=== PATIENT | female | born 1995 | race Caucasian/White ===

== ENCOUNTER 2023-03-31 19:12 | Inpatient (IN) | payer MEDICAID ==
[~2023-03-31] VITALS: Ht 149.9 cm; Wt 52.3 kg
[2023-03-31 20:26] LABS: APTT 27 SECONDS (22-32); PROTHROMBIN TIME 11.2 SECONDS (9.0-12.0)
[2023-03-31] MEDS ORDERED: temazepam 15mg capsule PO PRN (21:00)
[2023-03-31] MEDS ORDERED: HYDROcodone/acetaminophen 5mg/325mg tablet PO PRN (21:05)
[2023-03-31] MEDS ORDERED: ondansetron 4mg rapidly disintigrating tab PO PRN (21:05)
[2023-03-31] MEDS ORDERED: ondansetron/PF 4mg/2ml inj IV PRN (21:05)
[2023-03-31] MEDS ORDERED: diphenhydrAMINE 50 mg/ml inj IV PRN (21:05)
[2023-03-31] MEDS ORDERED: acetaminophen 325mg tablet PO PRN ×2 (21:05)
[2023-03-31] MEDS ORDERED: mag hydrox/Alum hydrox/simeth 30ml oral suspension PO PRN (21:05)
[2023-03-31] MEDS ORDERED: bisacodyl 10mg suppository rectal RC PRN (21:05)
[2023-03-31] MEDS ORDERED: morphine 2 MG/ML inj. syringe IV PRN (21:05)
[2023-03-31] MEDS ORDERED: diphenhydrAMINE 25mg capsule PO PRN (21:05)
[2023-03-31] MEDS ORDERED: magnesium hydroxide 30ml (MOM) UD suspension PO PRN (21:05)
[2023-03-31] MEDS ORDERED: ringers solution, lacted 1,000 ML IV ONE (21:10)
[2023-03-31 21:35] LABS: OSMOLALITY 283 MOSM/K (280-300)
[2023-03-31 21:36] LABS: ALANINE AMINOTRANSFERASE 16 U/L (12-78); ALBUMIN 3.7 G/DL (3.4-5.0); ALBUMIN/GLOBULIN RATIO 1.3 (1.1-1.5); ALKALINE PHOSPHATASE 50 IU/L (46-116); ANION GAP 7 (8-16); ASPARTATE AMINO TRANSFERASE 17 U/L (10-37); BASOPHILS # (AUTO) 0.1 X10'3 (0-0.2); BILIRUBIN,TOTAL 0.4 MG/DL (0.1-1.0); BLOOD UREA NITROGEN 6 MG/DL (7-18); BUN/CREATININE RATIO 10.9 (10.0-20.0); CALCIUM 8.8 MG/DL (8.5-10.1); CHLORIDE 105 MMOL/L (99-107); CREATININE 0.55 MG/DL (0.40-0.90); EOSINOPHILS # (AUTO) 0.1 X10'3 (0-0.9); EOSINOPHILS % (AUTO) 1.3 % (0-6); GLUCOSE 89 MG/DL (70-104); HEMATOCRIT 33.7 % (35.0-45.0); HEMOGLOBIN 11.3 g/dl (12.0-16.0); LYMPHOCYTES % (AUTO) 34.7 % (21-51); MEAN CORPUSCULAR HEMOGLOBIN 28.3 PG (27.0-31.0); MEAN CORPUSCULAR HGB CONC 33.6 g/dL (33.0-36.5); MEAN CORPUSCULAR VOLUME 84.3 FL (78-98); MEAN PLATELET VOLUME 9.6 FL (7.4-10.4); MONOCYTES # (AUTO) 0.4 X10'3 (0-0.9); MONOCYTES % (AUTO) 6.2 % (2-12); NEUTROPHILS # (AUTO) 3.2 X10'3 (1.8-7.7); NEUTROPHILS % (AUTO) 56.8 % (42-75); PLATELET COUNT 163 X10'3 (140-440); POTASSIUM 3.5 MMOL/L (3.5-5.1); RED CELL DISTRIBUTION WIDTH 14.2 % (11.5-14.5); SODIUM 139 MMOL/L (135-145); TOTAL CARBON DIOXIDE 26.6 MMOL/L (24-32); TOTAL PROTEIN 6.6 G/DL (6.4-8.2); WHITE BLOOD COUNT 5.7 X10'3 (4.5-11.0); eCRCL 107 ML/MIN; eGFR > 90 ML/MIN
[2023-03-31 21:40] LABS: D-DIMER < 0.19 MG/L FEU (0-0.50)
[2023-03-31 21:46] LABS: CREATINE KINASE 317 U/L (26-192); MAGNESIUM 2.1 MG/DL (1.5-2.4); PHOSPHORUS 4.2 MG/DL (2.3-4.5); PRO BRAIN NATRIURETIC PEPTIDE 265 PG/ML (0-125); THYROID STIMULATING HORMONE 0.67 ulU/ml (0.34-4.50)
[2023-03-31 21:49] LABS: HEMOGLOBIN A1C 4.9 % (4.5-6.2); LIPASE 20 U/L (16-77)
[2023-03-31 21:51] LABS: BILIRUBIN,URINE SMALL (Neg); CLARITY,URINE CLOUDY (Clear); GLUCOSE, URINE NEGATIVE (Neg); KETONES,URINE >=80 mg/dl (Neg); LEUKOCYTE ESTERASE ,URINE TRACE (Neg); NITRITES, URINE NEGATIVE (Neg); OCCULT BLOOD,URINE LARGE (Neg); PH,URINE 6.5 (4.8-8.0); PROTEIN,URINE 100 mg/dl (Neg)
[2023-03-31 21:56] LABS: UA COLLECTION TYPE CLN CATCH MIDSTREAM
[2023-03-31 21:57] LABS: COLOR,URINE PINK (Yellow)
[2023-03-31 22:00] LABS: BACTERIA,URINE 2+ /HPF (Neg); RBC,URINE TNTC /HPF (0-2); SQUAMOUS EPITHELIAL CELL,UR FEW /LPF (FEW)
[2023-03-31 22:18] LABS: URINE AMPHETAMINE SCREEN NEGATIVE (Neg); URINE BARBITUATE SCREEN NEGATIVE (Neg); URINE BENZODIAZEPINES SCREEN NEGATIVE (Neg); URINE CANNABINOID SCREEN NEGATIVE (Neg); URINE COCAINE SCREEN NEGATIVE (Neg); URINE OPIATE SCREEN NEGATIVE (Neg); URINE PHENCYCLIDINE SCREEN NEGATIVE (Neg)
[2023-03-31 22:30] LABS: C-REACTIVE PROTEIN < 0.05 MG/DL (0.0-0.5)
[2023-03-31 22:33] LABS: URINE HCG NEGATIVE (NEG)
[2023-03-31] MEDS: normal saline 1000ml 1,000 ML IV SCH (22:48)
--- NOTE | 2023-03-31 23:19 | NUR ---
CALLED RECEIVING NURSE TO GIVE REPORT. NURSE BUSY WITH OTHER PT AND WILL CALL BACK.
--- NOTE | 2023-03-31 23:45 | NUR ---
Patient in room PCU 3014. I have received report from Yahaira MEDINA RN and had the opportunity to ask questions and assume patient care.
[2023-04-01] VITALS: BP 84/53; PULSE 76; RESP 18; TEMP 97.7; O2SAT 97
[2023-04-01 02:00] VITALS: BP 88/56; PULSE 78; RESP 16; TEMP 97.9; O2SAT 97
--- NOTE | 2023-04-01 06:30 | NUR ---
Patient in room PCU 3014. I have received report from Kandi COBB and had the opportunity to ask questions and assume patient care.
--- NOTE | 2023-04-01 06:30 | NUR ---
Problems reprioritized. Patient report given, questions answered & plan of care reviewed with Dulce Maria MCKEON.
[2023-04-01 07:00] VITALS: BP 83/50; PULSE 73; RESP 14; TEMP 99.3; O2SAT 98
[2023-04-01 07:03] LABS: BASOPHILS # (AUTO) 0.1 X10'3 (0-0.2); BASOPHILS % (AUTO) 1.2 % (0-1); EOSINOPHILS # (AUTO) 0.1 X10'3 (0-0.9); EOSINOPHILS % (AUTO) 1.9 % (0-6); LYMPHOCYTES # (AUTO) 2.1 X10'3 (1.1-4.8); MEAN CORPUSCULAR HEMOGLOBIN 28.4 PG (27.0-31.0); MEAN CORPUSCULAR HGB CONC 33.4 g/dL (33.0-36.5); MEAN PLATELET VOLUME 9.4 FL (7.4-10.4); MONOCYTES # (AUTO) 0.4 X10'3 (0-0.9); MONOCYTES % (AUTO) 8.8 % (2-12); NEUTROPHILS # (AUTO) 1.7 X10'3 (1.8-7.7); NEUTROPHILS % (AUTO) 40.1 % (42-75); PLATELET COUNT 136 X10'3 (140-440); RED BLOOD COUNT 3.53 X10'6 (4.20-5.60); RED CELL DISTRIBUTION WIDTH 14.4 % (11.5-14.5); WHITE BLOOD COUNT 4.3 X10'3 (4.5-11.0)
[2023-04-01] MEDS: normal saline 1000ml 1,000 ML IV SCH (07:05)
[2023-04-01 07:29] LABS: ALANINE AMINOTRANSFERASE 10 U/L (12-78); ALBUMIN 2.9 G/DL (3.4-5.0); ALBUMIN/GLOBULIN RATIO 1.2 (1.1-1.5); ALKALINE PHOSPHATASE 40 IU/L (46-116); ANION GAP 6 (8-16); ASPARTATE AMINO TRANSFERASE 12 U/L (10-37); BILIRUBIN,TOTAL 0.4 MG/DL (0.1-1.0); BLOOD UREA NITROGEN 5 MG/DL (7-18); BUN/CREATININE RATIO 8.9 (10.0-20.0); CHLORIDE 109 MMOL/L (99-107); CHOLESTEROL 130 MG/DL (0-200); CREATININE 0.56 MG/DL (0.40-0.90); GLUCOSE 80 MG/DL (70-104); HDL CHOLESTEROL 44 MG/DL (35-60); LDL CHOLESTEROL 73 MG/DL (50-100); POTASSIUM 3.7 MMOL/L (3.5-5.1); SODIUM 141 MMOL/L (135-145); TOTAL CARBON DIOXIDE 26.4 MMOL/L (24-32); TOTAL PROTEIN 5.4 G/DL (6.4-8.2); TRIGLYCERIDES 41 MG/DL (20-135); eCRCL 105 ML/MIN; eGFR > 90 ML/MIN
[2023-04-01] MEDS ORDERED: pantoprazole 40mg Tablet.DR PO SCH (07:30)
[2023-04-01] MEDS ORDERED: heparin, porcine 5000 units/ml vial SQ SCH (08:00)
[2023-04-01] MEDS ORDERED: docusate sod 100mg capsule PO SCH (08:00)
[2023-04-01] MEDS ORDERED: aspirin 81mg tab.chew PO SCH (08:30)
[2023-04-01] MEDS ORDERED: HYDR-3686 PO (10:40)
[2023-04-01 11:00] VITALS: BP 86/52; PULSE 83; RESP 15; TEMP 99.3; O2SAT 96
--- NOTE | 2023-04-01 11:52 | NUR ---
CENTER ADMINISTRATOR documentation: I have reviewed and agree with all interventions, assessments performed and documented by Dulce Maria MCKEON.
--- NOTE | 2023-04-01 13:04 | NUR ---
Spoke with Resident about preliminary result of carotid US. gave the okay for patient to discharge.
--- NOTE | 2023-04-01 14:40 | NUR ---
Patient discharged home with all belongings and discharge instructions. IV removed and tele monitor removed and returned to telephone order clerk room service. Escorted out via wheel chair and left in private vehicle.
== END 2023-04-01 14:40 | disposition home or self-care (01) | DRG 190 ==
LOC: ER 19:14 → ED HOLD 21:08 → EDBEDREQ 22:48 → PCU 3S 23:55
PROVIDERS: ADMIT Family Medicine; ATTEND Internal Medicine
DX: R07.9 Chest pain, unspecified (principal); I21.A1 Myocardial infarction type 2; E86.1 Hypovolemia; F41.0 Panic disorder [episodic paroxysmal anxiety]; Z79.899 Other long term (current) drug therapy
CPT/HCPCS: 36415; 70450; 71045; 80053; 80061; 80305; 81001; 81025; 82550; 83036; 83690; 83735; 83880; 83930; 84100; 84443; 84484; 85025; 85379; 85610; 85651; 85730; 86140; 87081; 87088; 87811; 93306; 93880; 99285; G0378; J1644; J7030; J7120